=== PATIENT | female | born 1930 | race Caucasian/White ===

== ENCOUNTER → 2016-12-26 | Outpatient (CLI) | payer OTHER ==
[~2016-12-26] MED LIST: SIMV40TA96; SYNTHROID PO
[2016-12-26 14:54] LABS: Urine Bilirubin Negative (Negative); Urine Blood Negative /uL (Negative); Urine Color Yellow (Yellow); Urine Glucose Normal (Normal); Urine Ketone Negative (Negative); Urine Mucus FEW (None Seen); Urine Nitrite Negative (Negative); Urine RBC 1 /hpf (0 - 4); Urine Squamous Epithelial Cell FEW /hpf (<5); Urine Urobilinogen Normal (Negative); Urine pH 5.5 (5.0-8.0)
[2016-12-26 15:03] LABS: Basophils # (auto) 0.1 uL; DEFINITIVE VIEW TRANSMISSION; Eosinophils # (auto) 0.2 uL; Eosinophils % (auto) 1.8 % (0.0-7.0); Hematocrit 38.3 % (36.0-46.0); Hemoglobin 12.6 g/dL (12.2-16.2); Lymphocytes # (auto) 2.2 uL; Lymphocytes % (auto) 19.3 % (10.0-50.0); Mean Corpuscular Hgb Conc. 32.9 g/dL (32.0-36.0); Mean Corpuscular Volume 100.1 fL (80.0-100.0); Mean Platelet Volume 7.3 fL (7.4-10.4); Monocytes # (auto) 0.7 uL; Monocytes % (auto) 6.1 % (0.0-12.0); Neutrophils # (auto) 8.1 uL; Neutrophils % (auto) 71.8 % (37.0-80.0); Red Cell Distribution Width 15.7 % (11.6-16.0); White Blood Cell 11.3 10^3/uL (4.4-10.8)
[2016-12-26 15:09] LABS: Platelet Count (auto) 792 10^3/uL (140-450)
[2016-12-26 15:23] LABS: Albumin 3.7 g/dL (3.4-5.0); BUN/Creatinine Ratio 13.8; Bilirubin, Total 0.7 mg/dL (0.2-1.0); Calcium 8.9 mg/dL (8.5-10.1); Potassium 4.1 mmol/L (3.5-5.1); Total Protein 7.2 g/dL (6.4-8.2)
== END | disposition home or self-care (01) ==
LOC: LAB 13:23
PROVIDERS: ATTEND Internal Medicine
DX: Z00.00 Encounter for general adult medical examination without abnormal findings (principal); I10 Essential (primary) hypertension; E78.5 Hyperlipidemia, unspecified; E55.9 Vitamin D deficiency, unspecified
CPT/HCPCS: 36415; 80053; 80061; 81001; 82306; 83615; 84439; 84443; 84481; 85025

== ENCOUNTER → 2017-03-09 | Outpatient (CLI) | payer OTHER ==
[2017-03-09 11:31] LABS: Basophils # (auto) 0.1 uL; CONDITION Y; DEFINITIVE SEE PRINTOUT; Eosinophils # (auto) 0.3 uL; Eosinophils % (auto) 2.9 % (0.0-7.0); Hematocrit 36.6 % (36.0-46.0); Hemoglobin 12.2 g/dL (12.2-16.2); Lymphocytes # (auto) 2.6 uL; Lymphocytes % (auto) 28.7 % (10.0-50.0); Mean Corpuscular Hemoglobin 33.3 pg (28.0-32.0); Mean Corpuscular Hgb Conc. 33.4 g/dL (32.0-36.0); Mean Platelet Volume 7.1 fL (7.4-10.4); Monocytes # (auto) 0.5 uL; Neutrophils # (auto) 5.5 uL; Neutrophils % (auto) 61.4 % (37.0-80.0); Red Cell Distribution Width 15.3 % (11.6-16.0)
[2017-03-09 11:49] LABS: Platelet Count (auto) 785 10^3/uL (140-450)
[2017-03-09 11:55] LABS: Albumin 3.5 g/dL (3.4-5.0); BUN/Creatinine Ratio 15.2; Bilirubin, Total 0.6 mg/dL (0.2-1.0); Calcium 8.6 mg/dL (8.5-10.1); Total Protein 6.9 g/dL (6.4-8.2)
== END | disposition home or self-care (01) ==
LOC: LAB 11:18
PROVIDERS: ATTEND Internal Medicine
DX: D47.3 Essential (hemorrhagic) thrombocythemia (principal)
CPT/HCPCS: 36415; 80053; 83615; 85025

== ENCOUNTER 2017-04-05 19:09 | Emergency (ER) | payer OTHER ==
[~2017-04-05] VITALS: Ht 160 cm; Wt 72.6 kg
[2017-04-05 20:52] LABS: Basophils # (auto) 0.1 uL; Basophils % (auto) 0.7 % (0.0-2.0); CONDITION Y; Eosinophils # (auto) 0.2 uL; Eosinophils % (auto) 1.8 % (0.0-7.0); Hematocrit 38.3 % (36.0-46.0); Hemoglobin 12.8 g/dL (12.2-16.2); Lymphocytes # (auto) 2.2 uL; Mean Corpuscular Hemoglobin 32.9 pg (28.0-32.0); Mean Corpuscular Hgb Conc. 33.3 g/dL (32.0-36.0); Mean Corpuscular Volume 98.8 fL (80.0-100.0); Mean Platelet Volume 7.3 fL (7.4-10.4); Monocytes # (auto) 0.6 uL; Monocytes % (auto) 5.2 % (0.0-12.0); Neutrophils # (auto) 7.9 uL; Neutrophils % (auto) 72.3 % (37.0-80.0); Red Cell Distribution Width 15.3 % (11.6-16.0)
[2017-04-05 20:54] LABS: Platelet Count (auto) 764 10^3/uL (140-450)
[2017-04-05 21:11] LABS: Albumin 3.7 g/dL (3.4-5.0); Anion Gap 8 (5-15); Aspartate Aminotransferase 10 U/L (15-37); BUN/Creatinine Ratio 19.6; Blood Urea Nitrogen 20 mg/dL (7-18); Calcium 8.5 mg/dL (8.5-10.1); Carbon Dioxide 28 mmol/L (21-32); Chloride 108 mmol/L (98-107); GFR African American 66 mL/min; GFR Non-African American 55 mL/min; Glucose 104 mg/dL (74-106); Magnesium 2.4 mg/dL (1.6-2.6); Potassium 4.1 mmol/L (3.5-5.1); Sodium 144 mmol/L (136-145)
[2017-04-05 21:16] LABS: Alkaline Phosphatase 97 U/L (45-117); Bilirubin, Total 0.3 mg/dL (0.2-1.0); Total Protein 7.2 g/dL (6.4-8.2)
[2017-04-05 21:38] LABS: INR 0.98 (0.9-1.15); Partial Thromboplastin Time 26.5 sec (22.64-33.71); Prothrombin Time 10.7 sec (9.37-12.3)
[2017-04-06 01:00] VITALS: BP 179/75
== END 2017-04-06 01:25 | disposition home or self-care (01) ==
LOC: ER 19:14
DX: M25.861 Other specified joint disorders, right knee (principal); I10 Essential (primary) hypertension; E07.9 Disorder of thyroid, unspecified; Z90.710 Acquired absence of both cervix and uterus; Z79.899 Other long term (current) drug therapy
CPT/HCPCS: 36415; 73560; 73700; 80053; 83735; 84443; 84484; 85025; 85379; 85610; 85730; 93005; 93971

== ENCOUNTER → 2017-07-03 | Outpatient (CLI) | payer OTHER ==
[2017-07-03 12:26] LABS: Eosinophils # (auto) 0.2 uL; Hematocrit 39.3 % (36.0-46.0); Hemoglobin 12.9 g/dL (12.2-16.2); Lymphocytes # (auto) 2.2 uL; Monocytes # (auto) 0.6 uL; Nucleated Red Blood Cells % 0.1 %
[2017-07-03 12:27] LABS: Basophils # (auto) 0.4 uL; Basophils % (auto) 4.1 % (0.0-2.0); Eosinophils % (auto) 2.5 % (0.0-7.0); Lymphocytes % (auto) 22.7 % (10.0-50.0); Mean Corpuscular Hemoglobin 32.8 pg (28.0-32.0); Mean Corpuscular Hgb Conc. 32.9 g/dL (32.0-36.0); Mean Corpuscular Volume 99.9 fL (80.0-100.0); Mean Platelet Volume 7.3 fL (6.9-10.8); Neutrophils # (auto) 6.3 uL; Neutrophils % (auto) 64.7 % (37.0-80.0); Platelet Count (auto) 719 10^3/uL (140-450); Red Cell Distribution Width 15.2 % (11.8-14.3); White Blood Cell 9.7 10^3/uL (4.4-10.8)
[2017-07-03 12:44] LABS: Albumin 3.9 g/dL (3.4-5.0); BUN/Creatinine Ratio 16.2; Bilirubin, Total 0.8 mg/dL (0.2-1.0); Calcium 8.7 mg/dL (8.5-10.1); Potassium 4.5 mmol/L (3.5-5.1); Total Protein 7.5 g/dL (6.4-8.2)
[2017-07-03 13:23] LABS: Large Platelets FEW; Macrocytosis Slight; Platelet Estimate Increased
[2017-07-03 13:24] LABS: Ovalocytes FEW; Stomatocytes Few
== END | disposition home or self-care (01) ==
LOC: LAB 12:06
PROVIDERS: ATTEND Internal Medicine
DX: C50.019 Malignant neoplasm of nipple and areola, unspecified female breast (principal); N64.52 Nipple discharge; D47.3 Essential (hemorrhagic) thrombocythemia; I10 Essential (primary) hypertension
CPT/HCPCS: 36415; 80053; 83615; 85025

== ENCOUNTER → 2017-09-06 | Outpatient (CLI) | payer OTHER ==
[~2017-09-06] MED LIST changes: +ALBUAER3 IN; +FUR20T PO; +IPR002IS NEB; +LEVA1NEB5 IN; +LEVO75TA6 PO; +POTA10TA51 PO; +PRAV20TA3 PO; +VALS40TA2 PO
[2017-09-06 12:22] LABS: Basophils # (auto) 0.1 uL; Basophils % (auto) 1.1 % (0.0-2.0); Eosinophils # (auto) 0.2 uL; Lymphocytes # (auto) 2.2 uL; Nucleated Red Blood Cells % 0.1 %
[2017-09-06 12:24] LABS: Eosinophils % (auto) 1.8 % (0.0-7.0); Hematocrit 38.9 % (36.0-46.0); Hemoglobin 12.9 g/dL (12.2-16.2); Lymphocytes % (auto) 18.8 % (10.0-50.0); Mean Corpuscular Hgb Conc. 33.2 g/dL (32.0-36.0); Mean Corpuscular Volume 99.3 fL (80.0-100.0); Monocytes # (auto) 0.7 uL; Monocytes % (auto) 6.1 % (0.0-12.0); Neutrophils # (auto) 8.3 uL; Neutrophils % (auto) 72.2 % (37.0-80.0); Platelet Count (auto) 706 10^3/uL (140-450); Red Blood Cells 3.92 10^6/uL (4.0-5.20); Red Cell Distribution Width 15.6 % (11.8-14.3); White Blood Cell 11.5 10^3/uL (4.4-10.8)
[2017-09-06 13:09] LABS: BUN/Creatinine Ratio 17.5; Bilirubin, Total 0.7 mg/dL (0.2-1.0); Calcium 9.1 mg/dL (8.5-10.1); Potassium 4.4 mmol/L (3.5-5.1); Total Protein 7.7 g/dL (6.4-8.2)
[2017-09-06 13:17] LABS: Free T4 (Free Thyroxine) 1.4 ng/dL (0.89-1.76)
[2017-09-06 13:18] LABS: Free T3 2.28 pg/mL (2.3-4.2)
== END | disposition home or self-care (01) ==
LOC: LAB 11:23
PROVIDERS: ATTEND Physician Assistant
DX: N18.2 Chronic kidney disease, stage 2 (mild) (principal); D63.1 Anemia in chronic kidney disease; N25.81 Secondary hyperparathyroidism of renal origin; E03.9 Hypothyroidism, unspecified; D47.3 Essential (hemorrhagic) thrombocythemia; E78.4 Other hyperlipidemia
CPT/HCPCS: 36415; 80053; 80061; 83970; 84439; 84443; 84481; 85025

== ENCOUNTER 2017-09-19 23:13 | Inpatient (IN) | payer OTHER ==
[~2017-09-19] VITALS: Ht 162.6 cm; Wt 73.3 kg
[~2017-09-19 23:13] MED LIST changes: -ALBUAER3 IN; -FUR20T PO; -IPR002IS NEB; -LEVA1NEB5 IN; -LEVO75TA6 PO; -POTA10TA51 PO; -PRAV20TA3 PO; -VALS40TA2 PO
[2017-09-19] MEDS ORDERED: VALS40TA2 PO (23:51)
[2017-09-19] MEDS ORDERED: LEVO75TA6 PO (23:52)
[2017-09-19] MEDS ORDERED: PRAV20TA3 PO (23:52)
[2017-09-19] MEDS ORDERED: ALBUAER3 IN (23:54)
[2017-09-19 23:55] LABS: Eosinophils # (auto) 0 uL; Eosinophils % (auto) 0.2 % (0.0-7.0); Neutrophils # (auto) 11.7 uL
[2017-09-19 23:57] LABS: Basophils # (auto) 0.1 uL; Basophils % (auto) 0.4 % (0.0-2.0); Hematocrit 35.8 % (36.0-46.0); Hemoglobin 11.5 g/dL (12.2-16.2); Lymphocytes # (auto) 1.3 uL; Mean Corpuscular Hemoglobin 31.5 pg (28.0-32.0); Mean Corpuscular Hgb Conc. 32.1 g/dL (32.0-36.0); Mean Corpuscular Volume 98.3 fL (80.0-100.0); Monocytes % (auto) 7.1 % (0.0-12.0); Neutrophils % (auto) 83.3 % (37.0-80.0); Platelet Count (auto) 517 10^3/uL (140-450); Red Blood Cells 3.64 10^6/uL (4.0-5.20); Red Cell Distribution Width 14.9 % (11.8-14.3)
[2017-09-20] VITALS (7 sets, daily range): BP systolic 132–158; BP diastolic 53–86
[2017-09-20 00:12] LABS: Albumin 3.1 g/dL (3.4-5.0); Anion Gap 11 (5-15); BUN/Creatinine Ratio 24.5; Blood Urea Nitrogen 25 mg/dL (7-18); Calcium 8.6 mg/dL (8.5-10.1); Carbon Dioxide 24 mmol/L (21-32); Chloride 104 mmol/L (98-107); GFR African American 66 mL/min; GFR Non-African American 55 mL/min; Glucose 125 mg/dL (74-106); Magnesium 2.3 mg/dL (1.6-2.6); Potassium 3.4 mmol/L (3.5-5.1); Sodium 139 mmol/L (136-145)
[2017-09-20 00:17] LABS: Alanine Aminotransferase 22 U/L (13-56); Alkaline Phosphatase 69 U/L (45-117); Aspartate Aminotransferase 19 U/L (15-37); Bilirubin, Total 0.5 mg/dL (0.2-1.0); Total Protein 7.1 g/dL (6.4-8.2)
[2017-09-20 00:26] LABS: INR 0.98 (0.9-1.15); Prothrombin Time 10.7 sec (9.37-12.3)
[2017-09-20] MEDS ORDERED: FUROSEMIDE 20 MG/2 ML VIAL IV ONE (03:45)
[2017-09-20] MEDS ORDERED: DOCUSATE SOD 100 MG CAP PO PRN (04:00)
[2017-09-20] MEDS ORDERED: NITROGLYCERIN 0.4 MG SL TAB SL PRN (04:00)
[2017-09-20] MEDS ORDERED: POTASSIUM CHL 20 Meq TABLET PO ONE (04:00)
[2017-09-20] MEDS ORDERED: methylPREDNISolone SOD SUCC 125 MG/2 ML VL IV ONE (04:00)
[2017-09-20] MEDS ORDERED: IPRATROPIUM BROM 0.5 MG/2.5ML INH SOL NEB ONE (04:00)
[2017-09-20] MEDS ORDERED: MORPHINE SULFATE 4 MG/ML SYR/VIAL IV PRN (04:00)
[2017-09-20] MEDS ORDERED: AZITHROMYCIN 500MG/ 250ML 250 ML IV ONE (04:00)
[2017-09-20] MEDS ORDERED: ALBUTEROL SULF 2.5 MG/0.5ML(0.5%) NEB SOLN NEB ONE (04:00)
[2017-09-20] MEDS ORDERED: cefTRIAXone 1GM/10ml IVPUSH 10 ML IV ONE (04:00)
[2017-09-20] MEDS ORDERED: IOHEXOL 350 MG/ML 100ML IJ ONE (04:27)
[2017-09-20] MEDS: LEVOTHYROXINE SODIUM 25 MCG TAB PO SCH (06:58)
[2017-09-20] MEDS: IPRATROPIUM BROM 0.5 MG/2.5ML INH SOL NEB PRN ×2 (09:50→12:35)
[2017-09-20] MEDS: ALBUTEROL SULF 2.5 MG/0.5ML(0.5%) NEB SOLN NEB PRN ×2 (09:51→12:35)
[2017-09-20] MEDS ORDERED: FAMOTIDINE 20 MG TAB PO SCH (10:00)
[2017-09-20] MEDS: ENOXAPARIN SOD 40 MG/0.4 ML SYRINGE SC SCH (10:26)
[2017-09-20] MEDS: VALSARTAN 80 MG TAB PO SCH (10:26)
[2017-09-20] MEDS ORDERED: FAMOTIDINE 20 MG TAB PO ONE (10:45)
[2017-09-20] MEDS ORDERED: IPRATROPIUM BROM 0.5 MG/2.5ML INH SOL NEB SCH (13:15)
[2017-09-20] MEDS ORDERED: ALBUTEROL SULF 2.5 MG/0.5ML(0.5%) NEB SOLN NEB SCH (13:30)
[2017-09-20] MEDS: methylPREDNISolone SOD SUCC 40 MG/ML VL IV SCH ×2 (16:10→18:31)
[2017-09-20] MEDS: IPRATROPIUM BROM 0.5 MG/2.5ML INH SOL NEB SCH (18:51)
[2017-09-20] MEDS: ALBUTEROL SULF 2.5 MG/0.5ML(0.5%) NEB SOLN NEB SCH (18:51)
[2017-09-20] MEDS: BUDESONIDE (INHALATION) 0.5 MG/2 ML NEB NEB SCH (18:51)
[2017-09-20] MEDS: PRAVASTATIN SODIUM 20 MG TAB PO SCH (21:23)
[2017-09-20] MEDS: TEMAZEPAM 15 MG CAP PO PRN (21:23)
[2017-09-20] MEDS: ACETAMINOPHEN 325 MG TAB PO PRN (21:24)
[2017-09-21] VITALS (7 sets, daily range): BP systolic 121–149; BP diastolic 44–81
[2017-09-21] MEDS: IPRATROPIUM BROM 0.5 MG/2.5ML INH SOL NEB PRN (00:02)
[2017-09-21] MEDS: LEVOTHYROXINE SODIUM 25 MCG TAB PO SCH (06:04)
[2017-09-21] MEDS: methylPREDNISolone SOD SUCC 40 MG/ML VL IV SCH ×4 (06:04→17:47)
[2017-09-21 06:28] LABS: Basophils # (auto) 0 uL; Eosinophils # (auto) 0 uL; Hemoglobin 10.9 g/dL (12.2-16.2); Lymphocytes # (auto) 0.5 uL; Monocytes # (auto) 0.3 uL; Red Cell Distribution Width 14.9 % (11.8-14.3); White Blood Cell 11.6 10^3/uL (4.4-10.8)
[2017-09-21 06:30] LABS: Hematocrit 32.8 % (36.0-46.0); Lymphocytes % (auto) 4.7 % (10.0-50.0); Mean Corpuscular Hemoglobin 32.4 pg (28.0-32.0); Mean Corpuscular Hgb Conc. 33.4 g/dL (32.0-36.0); Mean Corpuscular Volume 97.3 fL (80.0-100.0); Monocytes % (auto) 2.3 % (0.0-12.0); Neutrophils # (auto) 10.8 uL; Platelet Count (auto) 553 10^3/uL (140-450); Red Blood Cells 3.37 10^6/uL (4.0-5.20)
[2017-09-21 06:57] LABS: Potassium 3.8 mmol/L (3.5-5.1)
[2017-09-21] MEDS: ALBUTEROL SULF 2.5 MG/0.5ML(0.5%) NEB SOLN NEB SCH ×5 (07:08→22:25)
[2017-09-21] MEDS: IPRATROPIUM BROM 0.5 MG/2.5ML INH SOL NEB SCH ×5 (07:08→22:25)
[2017-09-21 07:10] LABS: Albumin 2.9 g/dL (3.4-5.0); BUN/Creatinine Ratio 25.8; Calcium 8.7 mg/dL (8.5-10.1)
[2017-09-21 07:13] LABS: Bilirubin, Total 0.4 mg/dL (0.2-1.0); Total Protein 6.6 g/dL (6.4-8.2)
[2017-09-21] MEDS: VALSARTAN 80 MG TAB PO SCH (08:46)
[2017-09-21] MEDS: FAMOTIDINE 20 MG TAB PO SCH (08:46)
[2017-09-21] MEDS: ENOXAPARIN SOD 40 MG/0.4 ML SYRINGE SC SCH (08:47)
[2017-09-21] MEDS: AZITHROMYCIN 500MG/ 250ML 250 ML IV SCH (08:48)
[2017-09-21] MEDS: ACETAMINOPHEN 325 MG TAB PO PRN (08:55)
[2017-09-21] MEDS: BUDESONIDE (INHALATION) 0.5 MG/2 ML NEB NEB SCH ×2 (10:27→18:57)
[2017-09-21] MEDS: OSELTAMIVIR 75 MG CAP PO SCH ×2 (12:12→20:43)
[2017-09-21] MEDS: PRAVASTATIN SODIUM 20 MG TAB PO SCH (21:39)
[2017-09-21] MEDS: TEMAZEPAM 15 MG CAP PO PRN (21:39)
[2017-09-22] MEDS: methylPREDNISolone SOD SUCC 40 MG/ML VL IV SCH ×4 (00:17→21:27)
[2017-09-22] MEDS: ACETAMINOPHEN 325 MG TAB PO PRN (00:17)
[2017-09-22 05:02] VITALS: BP 140/52
[2017-09-22] MEDS: ALBUTEROL SULF 2.5 MG/0.5ML(0.5%) NEB SOLN NEB SCH ×4 (06:17→18:50)
[2017-09-22] MEDS: IPRATROPIUM BROM 0.5 MG/2.5ML INH SOL NEB SCH ×4 (06:17→18:50)
[2017-09-22] MEDS: LEVOTHYROXINE SODIUM 25 MCG TAB PO SCH (06:39)
[2017-09-22 08:00] VITALS: BP 146/60
[2017-09-22] MEDS: ENOXAPARIN SOD 40 MG/0.4 ML SYRINGE SC SCH (08:59)
[2017-09-22] MEDS: AZITHROMYCIN 500MG/ 250ML 250 ML IV SCH (09:00)
[2017-09-22] MEDS: FAMOTIDINE 20 MG TAB PO SCH (09:00)
[2017-09-22] MEDS: VALSARTAN 80 MG TAB PO SCH (09:00)
[2017-09-22] MEDS: OSELTAMIVIR 75 MG CAP PO SCH (09:00)
[2017-09-22] MEDS: BUDESONIDE (INHALATION) 0.5 MG/2 ML NEB NEB SCH ×2 (10:14→18:50)
[2017-09-22 12:00] VITALS: BP 126/56
[2017-09-22 16:00] VITALS: BP 146/58
[2017-09-22 20:00] VITALS: BP 132/64
[2017-09-22] MEDS: PRAVASTATIN SODIUM 20 MG TAB PO SCH (21:30)
[2017-09-22] MEDS: TEMAZEPAM 15 MG CAP PO PRN (21:30)
[2017-09-22 21:53] VITALS: BP 132/64
[2017-09-23] MEDS: ACETAMINOPHEN 325 MG TAB PO PRN (00:25)
[2017-09-23 04:34] VITALS: BP 124/62
[2017-09-23] MEDS: IPRATROPIUM BROM 0.5 MG/2.5ML INH SOL NEB SCH ×4 (05:40→18:48)
[2017-09-23] MEDS: ALBUTEROL SULF 2.5 MG/0.5ML(0.5%) NEB SOLN NEB SCH ×4 (05:40→18:48)
[2017-09-23] MEDS: methylPREDNISolone SOD SUCC 40 MG/ML VL IV SCH ×3 (06:06→22:05)
[2017-09-23 06:21] LABS: Basophils # (auto) 0 uL; Eosinophils # (auto) 0 uL; Hemoglobin 10.2 g/dL (12.2-16.2); Lymphocytes # (auto) 0.6 uL; Monocytes # (auto) 0.3 uL
[2017-09-23 06:23] LABS: Hematocrit 30.6 % (36.0-46.0); Lymphocytes % (auto) 4.3 % (10.0-50.0); Mean Corpuscular Hemoglobin 32.1 pg (28.0-32.0); Mean Corpuscular Hgb Conc. 33.2 g/dL (32.0-36.0); Mean Corpuscular Volume 96.9 fL (80.0-100.0); Monocytes % (auto) 2.5 % (0.0-12.0); Neutrophils # (auto) 12.2 uL; Neutrophils % (auto) 93.2 % (37.0-80.0); Platelet Count (auto) 603 10^3/uL (140-450); Red Blood Cells 3.16 10^6/uL (4.0-5.20); Red Cell Distribution Width 15.1 % (11.8-14.3); White Blood Cell 13.1 10^3/uL (4.4-10.8)
[2017-09-23 06:32] LABS: BUN/Creatinine Ratio 29.3; Calcium 8.2 mg/dL (8.5-10.1)
[2017-09-23] MEDS: LEVOTHYROXINE SODIUM 25 MCG TAB PO SCH (06:48)
[2017-09-23 07:29] VITALS: BP 140/58
[2017-09-23] MEDS: ENOXAPARIN SOD 40 MG/0.4 ML SYRINGE SC SCH (09:33)
[2017-09-23] MEDS: AZITHROMYCIN 500MG/ 250ML 250 ML IV SCH (09:33)
[2017-09-23] MEDS: FAMOTIDINE 20 MG TAB PO SCH (09:34)
[2017-09-23] MEDS: VALSARTAN 80 MG TAB PO SCH (09:34)
[2017-09-23] MEDS: BUDESONIDE (INHALATION) 0.5 MG/2 ML NEB NEB SCH ×2 (09:58→18:49)
[2017-09-23 11:48] VITALS: BP 145/61
[2017-09-23] MEDS: SOD CHL 0.45% 1,000 ML IV SCH (12:00)
[2017-09-23] MEDS: guaiFENesin 200 MG/10 ML UD PO SCH ×2 (12:00→17:35)
[2017-09-23 17:03] VITALS: BP 132/55
[2017-09-23 20:00] VITALS: BP 151/60
[2017-09-23 21:53] VITALS: BP 151/60
[2017-09-23] MEDS: PRAVASTATIN SODIUM 20 MG TAB PO SCH (22:05)
[2017-09-23] MEDS: TEMAZEPAM 15 MG CAP PO PRN (22:39)
[2017-09-24] MEDS: guaiFENesin 200 MG/10 ML UD PO SCH ×4 (00:04→17:35)
[2017-09-24 04:32] VITALS: BP 136/86
[2017-09-24 05:47] LABS: Hemoglobin 10.6 g/dL (12.2-16.2); Mean Corpuscular Hemoglobin 32.6 pg (28.0-32.0); White Blood Cell 12.8 10^3/uL (4.4-10.8)
[2017-09-24 05:50] LABS: Hematocrit 31.4 % (36.0-46.0); Mean Corpuscular Hgb Conc. 33.8 g/dL (32.0-36.0); Mean Corpuscular Volume 96.6 fL (80.0-100.0); Platelet Count (auto) 648 10^3/uL (140-450); Red Blood Cells 3.25 10^6/uL (4.0-5.20); Red Cell Distribution Width 15.1 % (11.8-14.3)
[2017-09-24] MEDS: methylPREDNISolone SOD SUCC 40 MG/ML VL IV SCH ×3 (05:54→21:54)
[2017-09-24 05:58] LABS: Basophils % (manual) 0 (0.0-2.0); Blast Cells 0; Eosinophils % (manual) 0 (0-7); Promyelocytes % 0; Reactive Lymphocytes 0
[2017-09-24 06:01] LABS: Calcium 8.5 mg/dL (8.5-10.1); Potassium 4.5 mmol/L (3.5-5.1)
[2017-09-24] MEDS: IPRATROPIUM BROM 0.5 MG/2.5ML INH SOL NEB SCH ×4 (06:11→19:14)
[2017-09-24] MEDS: ALBUTEROL SULF 2.5 MG/0.5ML(0.5%) NEB SOLN NEB SCH ×4 (06:11→19:13)
[2017-09-24] MEDS: LEVOTHYROXINE SODIUM 25 MCG TAB PO SCH (06:46)
[2017-09-24 07:00] LABS: Band Neutrophils % (manual) 4; Lymphocytes % (manual) 7 (10.0-50.0); Metamyelocytes % 1; Monocytes % (manual) 6 (0-12); Myelocytes % 1
[2017-09-24 09:00] VITALS: BP 138/63
[2017-09-24] MEDS: AZITHROMYCIN 500MG/ 250ML 250 ML IV SCH (09:52)
[2017-09-24] MEDS: FAMOTIDINE 20 MG TAB PO SCH (09:53)
[2017-09-24] MEDS: VALSARTAN 80 MG TAB PO SCH (09:53)
[2017-09-24] MEDS: ENOXAPARIN SOD 40 MG/0.4 ML SYRINGE SC SCH (09:54)
[2017-09-24] MEDS: ACETAMINOPHEN 325 MG TAB PO PRN (10:00)
[2017-09-24] MEDS ORDERED: DEXTROSE (50%) 50ML SYRG IV PRN (10:30)
[2017-09-24] MEDS: BUDESONIDE (INHALATION) 0.5 MG/2 ML NEB NEB SCH ×2 (10:37→19:14)
[2017-09-24] MEDS: ACCU-CHEK COMFORT CURVE STRIP VI SCH ×3 (11:38→21:54)
[2017-09-24] MEDS: InsuLIN REG 1unit/0.01ml Soln (100units/ml) SC SCH ×3 (11:39→21:55)
[2017-09-24 13:00] VITALS: BP 141/62
[2017-09-24] MEDS: SOD CHL 0.45% 1,000 ML IV SCH (13:15)
[2017-09-24 17:00] VITALS: BP 141/67
[2017-09-24] MEDS: MORPHINE SULFATE 4 MG/ML SYR/VIAL IV PRN ×2 (17:35→23:01)
[2017-09-24 20:00] VITALS: BP 136/56
[2017-09-24 21:33] VITALS: BP 136/56
[2017-09-24] MEDS: PRAVASTATIN SODIUM 20 MG TAB PO SCH (21:54)
[2017-09-25] MEDS: MORPHINE SULFATE 4 MG/ML SYR/VIAL IV PRN ×2 (04:25→08:52)
[2017-09-25 04:48] VITALS: BP 139/60
[2017-09-25] MEDS: guaiFENesin 200 MG/10 ML UD PO SCH ×4 (06:00→18:00)
[2017-09-25] MEDS: IPRATROPIUM BROM 0.5 MG/2.5ML INH SOL NEB SCH ×4 (06:06→19:34)
[2017-09-25] MEDS: ALBUTEROL SULF 2.5 MG/0.5ML(0.5%) NEB SOLN NEB SCH ×4 (06:06→19:34)
[2017-09-25] MEDS: ACCU-CHEK COMFORT CURVE STRIP VI SCH ×4 (06:09→22:00)
[2017-09-25] MEDS: methylPREDNISolone SOD SUCC 40 MG/ML VL IV SCH ×3 (06:17→22:27)
[2017-09-25] MEDS: LEVOTHYROXINE SODIUM 25 MCG TAB PO SCH (06:17)
[2017-09-25] MEDS: InsuLIN REG 1unit/0.01ml Soln (100units/ml) SC SCH ×4 (06:18→22:41)
[2017-09-25 06:44] LABS: BUN/Creatinine Ratio 32.4; Calcium 8.2 mg/dL (8.5-10.1); Potassium 4.7 mmol/L (3.5-5.1)
[2017-09-25 07:36] LABS: Hemoglobin 10.7 g/dL (12.2-16.2); Mean Corpuscular Hemoglobin 32.3 pg (28.0-32.0); Mean Corpuscular Hgb Conc. 33.5 g/dL (32.0-36.0); Mean Corpuscular Volume 96.4 fL (80.0-100.0); Platelet Count (auto) 633 10^3/uL (140-450); Red Blood Cells 3.32 10^6/uL (4.0-5.20); Red Cell Distribution Width 14.9 % (11.8-14.3); White Blood Cell 14.1 10^3/uL (4.4-10.8)
[2017-09-25 07:38] LABS: Band Neutrophils % (manual) 0; Basophils % (manual) 0 (0.0-2.0); Blast Cells 0; Eosinophils % (manual) 0 (0-7); Metamyelocytes % 0; Myelocytes % 0; Promyelocytes % 0; Reactive Lymphocytes 0
[2017-09-25 08:23] VITALS: BP 148/63
[2017-09-25] MEDS: FAMOTIDINE 20 MG TAB PO SCH (08:50)
[2017-09-25] MEDS: VALSARTAN 80 MG TAB PO SCH (08:51)
[2017-09-25] MEDS: ENOXAPARIN SOD 40 MG/0.4 ML SYRINGE SC SCH (08:52)
[2017-09-25] MEDS: AZITHROMYCIN 500MG/ 250ML 250 ML IV SCH (08:52)
[2017-09-25] MEDS: BUDESONIDE (INHALATION) 0.5 MG/2 ML NEB NEB SCH ×2 (09:55→19:34)
[2017-09-25 12:20] VITALS: BP 133/54
[2017-09-25 14:17] LABS: Lymphocytes % (manual) 6 (10.0-50.0); Monocytes % (manual) 7 (0-12)
[2017-09-25 16:48] VITALS: BP 122/46
[2017-09-25 21:58] VITALS: BP 140/60
[2017-09-25] MEDS: TEMAZEPAM 15 MG CAP PO PRN (22:26)
[2017-09-25] MEDS: PRAVASTATIN SODIUM 20 MG TAB PO SCH (22:26)
[2017-09-25] MEDS: ACETAMINOPHEN 325 MG TAB PO PRN (22:40)
[2017-09-26 05:29] VITALS: BP 138/71
[2017-09-26] MEDS: IPRATROPIUM BROM 0.5 MG/2.5ML INH SOL NEB SCH ×4 (05:42→19:16)
[2017-09-26] MEDS: BUDESONIDE (INHALATION) 0.5 MG/2 ML NEB NEB SCH ×2 (05:42→19:16)
[2017-09-26] MEDS: ALBUTEROL SULF 2.5 MG/0.5ML(0.5%) NEB SOLN NEB SCH ×5 (05:42→19:15)
[2017-09-26] MEDS: guaiFENesin 200 MG/10 ML UD PO SCH ×6 (06:00→23:41)
[2017-09-26] MEDS: methylPREDNISolone SOD SUCC 40 MG/ML VL IV SCH ×3 (06:26→21:49)
[2017-09-26] MEDS: InsuLIN REG 1unit/0.01ml Soln (100units/ml) SC SCH ×4 (06:27→21:51)
[2017-09-26] MEDS: LEVOTHYROXINE SODIUM 25 MCG TAB PO SCH (06:27)
[2017-09-26] MEDS: ACCU-CHEK COMFORT CURVE STRIP VI SCH ×4 (06:27→21:51)
[2017-09-26 06:30] LABS: Mean Corpuscular Hgb Conc. 32.9 g/dL (32.0-36.0)
[2017-09-26 06:37] LABS: Hematocrit 34.6 % (36.0-46.0); Hemoglobin 11.4 g/dL (12.2-16.2); Mean Corpuscular Hemoglobin 31.8 pg (28.0-32.0); Mean Corpuscular Volume 96.6 fL (80.0-100.0); Red Blood Cells 3.58 10^6/uL (4.0-5.20); Red Cell Distribution Width 14.8 % (11.8-14.3); White Blood Cell 17.6 10^3/uL (4.4-10.8)
[2017-09-26 06:42] LABS: BUN/Creatinine Ratio 31.1; Potassium 4.4 mmol/L (3.5-5.1)
[2017-09-26 06:43] LABS: Platelet Count (auto) 770 10^3/uL (140-450)
[2017-09-26 06:44] LABS: Band Neutrophils % (manual) 0; Basophils % (manual) 0 (0.0-2.0); Eosinophils % (manual) 0 (0-7); Metamyelocytes % 0; Myelocytes % 0
[2017-09-26 06:45] LABS: Blast Cells 0; Promyelocytes % 0; Reactive Lymphocytes 0
[2017-09-26 09:00] VITALS: BP 137/63
[2017-09-26] MEDS: FAMOTIDINE 20 MG TAB PO SCH (09:42)
[2017-09-26] MEDS: AZITHROMYCIN 250 MG TAB PO SCH (09:43)
[2017-09-26] MEDS: VALSARTAN 80 MG TAB PO SCH (09:44)
[2017-09-26] MEDS: ENOXAPARIN SOD 40 MG/0.4 ML SYRINGE SC SCH (09:48)
[2017-09-26] MEDS: BOOST PLUS 8 ounce PO SCH ×2 (12:05→17:47)
[2017-09-26 12:14] VITALS: BP 130/62
[2017-09-26 14:50] LABS: Lymphocytes % (manual) 7 (10.0-50.0); Monocytes % (manual) 3 (0-12)
[2017-09-26 15:23] VITALS: BP 130/62
[2017-09-26 16:03] VITALS: BP 146/74
[2017-09-26] MEDS: MORPHINE SULFATE 4 MG/ML SYR/VIAL IV PRN (21:20)
[2017-09-26] MEDS: CLINDAMYCIN 600MG IV 50 ML IV SCH (21:49)
[2017-09-26] MEDS: PRAVASTATIN SODIUM 20 MG TAB PO SCH (21:49)
[2017-09-26 22:00] VITALS: BP 140/65
[2017-09-26] MEDS: TEMAZEPAM 15 MG CAP PO PRN (23:41)
[2017-09-27] MEDS: MORPHINE SULFATE 4 MG/ML SYR/VIAL IV PRN (04:42)
[2017-09-27 05:45] VITALS: BP 126/52
[2017-09-27] MEDS: guaiFENesin 200 MG/10 ML UD PO SCH ×3 (06:00→18:16)
[2017-09-27 06:02] LABS: Hemoglobin 10.6 g/dL (12.2-16.2); Platelet Count (auto) 621 10^3/uL (140-450)
[2017-09-27 06:05] LABS: Hematocrit 31.5 % (36.0-46.0); Mean Corpuscular Hemoglobin 32.2 pg (28.0-32.0); Mean Corpuscular Hgb Conc. 33.5 g/dL (32.0-36.0); Red Blood Cells 3.29 10^6/uL (4.0-5.20); Red Cell Distribution Width 14.8 % (11.8-14.3); White Blood Cell 15.3 10^3/uL (4.4-10.8)
[2017-09-27 06:17] LABS: Calcium 7.8 mg/dL (8.5-10.1); Potassium 4.6 mmol/L (3.5-5.1)
[2017-09-27 06:18] LABS: Band Neutrophils % (manual) 0; Basophils % (manual) 0 (0.0-2.0); Blast Cells 0; Eosinophils % (manual) 0 (0-7); Metamyelocytes % 0; Myelocytes % 0; Promyelocytes % 0; Reactive Lymphocytes 0
[2017-09-27 06:22] LABS: BUN/Creatinine Ratio 40.7
[2017-09-27] MEDS: methylPREDNISolone SOD SUCC 40 MG/ML VL IV SCH (06:22)
[2017-09-27] MEDS: CLINDAMYCIN 600MG IV 50 ML IV SCH ×3 (06:22→22:04)
[2017-09-27] MEDS: ACCU-CHEK COMFORT CURVE STRIP VI SCH ×4 (06:23→22:05)
[2017-09-27] MEDS: InsuLIN REG 1unit/0.01ml Soln (100units/ml) SC SCH ×4 (06:23→22:04)
[2017-09-27] MEDS: LEVOTHYROXINE SODIUM 25 MCG TAB PO SCH (06:23)
[2017-09-27] MEDS: ONDANSETRON HCL 4 MG/2 ML VIAL IV PRN ×2 (06:24→13:07)
[2017-09-27] MEDS: ALBUTEROL SULF 2.5 MG/0.5ML(0.5%) NEB SOLN NEB SCH ×4 (06:40→18:00)
[2017-09-27] MEDS: IPRATROPIUM BROM 0.5 MG/2.5ML INH SOL NEB SCH ×4 (06:40→19:31)
[2017-09-27] MEDS: BOOST PLUS 8 ounce PO SCH ×3 (08:00→18:16)
[2017-09-27 08:19] VITALS: BP 128/52
[2017-09-27 10:53] LABS: Lymphocytes % (manual) 14 (10.0-50.0); Monocytes % (manual) 1 (0-12)
[2017-09-27] MEDS: BUDESONIDE (INHALATION) 0.5 MG/2 ML NEB NEB SCH ×2 (11:13→19:32)
[2017-09-27] MEDS ORDERED: predniSONE 20 MG TAB PO ONE (11:45)
[2017-09-27 11:51] VITALS: BP 122/88
[2017-09-27] MEDS: VALSARTAN 80 MG TAB PO SCH (12:11)
[2017-09-27] MEDS: AZITHROMYCIN 250 MG TAB PO SCH (12:12)
[2017-09-27] MEDS: FAMOTIDINE 20 MG TAB PO SCH (12:13)
[2017-09-27] MEDS: ENOXAPARIN SOD 40 MG/0.4 ML SYRINGE SC SCH (12:13)
[2017-09-27] MEDS: LORazepam 0.5 MG TAB PO PRN (12:46)
[2017-09-27 16:51] VITALS: BP 117/51
[2017-09-27 21:33] VITALS: BP 121/53
[2017-09-27] MEDS: TEMAZEPAM 15 MG CAP PO PRN (22:03)
[2017-09-27] MEDS: PRAVASTATIN SODIUM 20 MG TAB PO SCH (22:04)
[2017-09-28] MEDS: LORazepam 0.5 MG TAB PO PRN ×3 (02:33→21:25)
[2017-09-28 05:00] VITALS: BP 107/39
[2017-09-28] MEDS: guaiFENesin 200 MG/10 ML UD PO SCH ×4 (06:00→17:43)
[2017-09-28] MEDS: IPRATROPIUM BROM 0.5 MG/2.5ML INH SOL NEB SCH ×4 (06:00→19:38)
[2017-09-28] MEDS: ALBUTEROL SULF 2.5 MG/0.5ML(0.5%) NEB SOLN NEB SCH ×4 (06:00→19:38)
[2017-09-28] MEDS: CLINDAMYCIN 600MG IV 50 ML IV SCH (06:27)
[2017-09-28] MEDS: InsuLIN REG 1unit/0.01ml Soln (100units/ml) SC SCH ×4 (06:28→21:42)
[2017-09-28] MEDS: LEVOTHYROXINE SODIUM 25 MCG TAB PO SCH (06:28)
[2017-09-28] MEDS: ACCU-CHEK COMFORT CURVE STRIP VI SCH ×4 (06:28→21:42)
[2017-09-28] MEDS: BOOST PLUS 8 ounce PO SCH ×3 (08:00→17:47)
[2017-09-28 08:19] VITALS: BP 131/58
[2017-09-28] MEDS: BUDESONIDE (INHALATION) 0.5 MG/2 ML NEB NEB SCH ×2 (10:26→19:39)
[2017-09-28] MEDS: predniSONE 20 MG TAB PO SCH (11:01)
[2017-09-28] MEDS: VALSARTAN 80 MG TAB PO SCH (11:02)
[2017-09-28] MEDS: AZITHROMYCIN 250 MG TAB PO SCH (11:02)
[2017-09-28] MEDS: ENOXAPARIN SOD 40 MG/0.4 ML SYRINGE SC SCH (11:03)
[2017-09-28] MEDS: PANTOPRAZOLE 40 MG/10 ML VIAL IV SCH (11:03)
[2017-09-28 11:53] VITALS: BP 129/58
[2017-09-28] MEDS ORDERED: FLUCONAZOLE 100 MG TAB PO ONE (12:00)
[2017-09-28 16:41] VITALS: BP 132/44
[2017-09-28] MEDS: PRAVASTATIN SODIUM 20 MG TAB PO SCH (21:24)
[2017-09-28 22:00] VITALS: BP 155/56
[2017-09-28] MEDS: TEMAZEPAM 15 MG CAP PO PRN (22:15)
[2017-09-29] VITALS (8 sets, daily range): BP systolic 113–136; BP diastolic 52–61
[2017-09-29] MEDS: IPRATROPIUM BROM 0.5 MG/2.5ML INH SOL NEB SCH ×4 (06:00→18:29)
[2017-09-29] MEDS: ALBUTEROL SULF 2.5 MG/0.5ML(0.5%) NEB SOLN NEB SCH ×4 (06:00→18:29)
[2017-09-29] MEDS: InsuLIN REG 1unit/0.01ml Soln (100units/ml) SC SCH ×2 (06:34→11:20)
[2017-09-29] MEDS: ACCU-CHEK COMFORT CURVE STRIP VI SCH ×2 (06:34→11:21)
[2017-09-29] MEDS: guaiFENesin 200 MG/10 ML UD PO SCH ×2 (06:57)
[2017-09-29] MEDS: LEVOTHYROXINE SODIUM 25 MCG TAB PO SCH (06:57)
[2017-09-29] MEDS: BUDESONIDE (INHALATION) 0.5 MG/2 ML NEB NEB SCH ×2 (09:51→18:29)
[2017-09-29] MEDS: PANTOPRAZOLE 40 MG/10 ML VIAL IV SCH (10:20)
[2017-09-29] MEDS: BOOST PLUS 8 ounce PO SCH ×3 (10:20→18:30)
[2017-09-29] MEDS: predniSONE 20 MG TAB PO SCH (10:21)
[2017-09-29] MEDS: VALSARTAN 80 MG TAB PO SCH (10:21)
[2017-09-29] MEDS: FLUCONAZOLE 100 MG TAB PO SCH (10:21)
[2017-09-29] MEDS: AZITHROMYCIN 250 MG TAB PO SCH (10:21)
[2017-09-29] MEDS: ENOXAPARIN SOD 40 MG/0.4 ML SYRINGE SC SCH (10:22)
[2017-09-29] MEDS: NYSTATIN (MOUTH-THROAT) 500,000 UNITS/5 ML SUSP MT SCH ×3 (12:14→22:29)
[2017-09-29] MEDS: PRAVASTATIN SODIUM 20 MG TAB PO SCH (22:29)
[2017-09-29] MEDS: TEMAZEPAM 15 MG CAP PO PRN (22:29)
[2017-09-30] VITALS (7 sets, daily range): BP systolic 123–139; BP diastolic 55–70
[2017-09-30] MEDS: BUDESONIDE (INHALATION) 0.5 MG/2 ML NEB NEB SCH ×2 (05:49→17:42)
[2017-09-30] MEDS: ALBUTEROL SULF 2.5 MG/0.5ML(0.5%) NEB SOLN NEB SCH ×3 (05:49→17:43)
[2017-09-30] MEDS: IPRATROPIUM BROM 0.5 MG/2.5ML INH SOL NEB SCH ×4 (05:49→17:42)
[2017-09-30] MEDS: LEVOTHYROXINE SODIUM 25 MCG TAB PO SCH (06:11)
[2017-09-30] MEDS: NYSTATIN (MOUTH-THROAT) 500,000 UNITS/5 ML SUSP MT SCH ×4 (06:11→22:09)
[2017-09-30 06:56] LABS: Hematocrit 32.6 % (36.0-46.0); Mean Corpuscular Hemoglobin 32.4 pg (28.0-32.0); Mean Corpuscular Hgb Conc. 33.7 g/dL (32.0-36.0); Mean Corpuscular Volume 96.1 fL (80.0-100.0); Platelet Count (auto) 579 10^3/uL (140-450); Red Cell Distribution Width 15.1 % (11.8-14.3); White Blood Cell 15.4 10^3/uL (4.4-10.8)
[2017-09-30 06:58] LABS: Basophils % (manual) 0 (0.0-2.0); Blast Cells 0; Promyelocytes % 0; Reactive Lymphocytes 0
[2017-09-30 07:27] LABS: Albumin 2.6 g/dL (3.4-5.0); Bilirubin, Total 0.5 mg/dL (0.2-1.0); Calcium 7.9 mg/dL (8.5-10.1); Potassium 5.1 mmol/L (3.5-5.1); Total Protein 5.6 g/dL (6.4-8.2)
[2017-09-30 08:30] LABS: Band Neutrophils % (manual) 3; Eosinophils % (manual) 1 (0-7); Lymphocytes % (manual) 16 (10.0-50.0); Metamyelocytes % 1; Monocytes % (manual) 8 (0-12); Myelocytes % 1
[2017-09-30] MEDS: PANTOPRAZOLE 40 MG/10 ML VIAL IV SCH (11:37)
[2017-09-30] MEDS: BOOST PLUS 8 ounce PO SCH ×3 (11:37→18:31)
[2017-09-30] MEDS: FLUCONAZOLE 100 MG TAB PO SCH (11:37)
[2017-09-30] MEDS: predniSONE 20 MG TAB PO SCH (11:37)
[2017-09-30] MEDS: VALSARTAN 80 MG TAB PO SCH (11:38)
[2017-09-30] MEDS: AZITHROMYCIN 250 MG TAB PO SCH (11:38)
[2017-09-30] MEDS: ENOXAPARIN SOD 40 MG/0.4 ML SYRINGE SC SCH (11:39)
[2017-09-30] MEDS: PRAVASTATIN SODIUM 20 MG TAB PO SCH (22:09)
[2017-09-30] MEDS: TEMAZEPAM 15 MG CAP PO PRN (22:16)
[2017-10-01 05:27] VITALS: BP 133/55
[2017-10-01] MEDS: ALBUTEROL SULF 2.5 MG/0.5ML(0.5%) NEB SOLN NEB SCH ×4 (06:00→18:00)
[2017-10-01] MEDS: IPRATROPIUM BROM 0.5 MG/2.5ML INH SOL NEB SCH ×4 (06:05→19:15)
[2017-10-01] MEDS: BUDESONIDE (INHALATION) 0.5 MG/2 ML NEB NEB SCH ×2 (06:06→19:16)
[2017-10-01] MEDS: NYSTATIN (MOUTH-THROAT) 500,000 UNITS/5 ML SUSP MT SCH ×4 (06:27→21:48)
[2017-10-01] MEDS: LEVOTHYROXINE SODIUM 25 MCG TAB PO SCH (06:30)
[2017-10-01 09:30] VITALS: BP 136/70
[2017-10-01 09:31] VITALS: BP 136/70
[2017-10-01] MEDS: ENOXAPARIN SOD 40 MG/0.4 ML SYRINGE SC SCH (09:52)
[2017-10-01] MEDS: predniSONE 20 MG TAB PO SCH (09:52)
[2017-10-01] MEDS: AZITHROMYCIN 250 MG TAB PO SCH (09:52)
[2017-10-01] MEDS: FLUCONAZOLE 100 MG TAB PO SCH (09:52)
[2017-10-01] MEDS: BOOST PLUS 8 ounce PO SCH ×3 (09:52→18:00)
[2017-10-01] MEDS: VALSARTAN 80 MG TAB PO SCH (09:53)
[2017-10-01] MEDS: PANTOPRAZOLE 40 MG/10 ML VIAL IV SCH (09:53)
[2017-10-01 12:28] VITALS: BP 136/70
[2017-10-01 16:22] VITALS: BP 130/58
[2017-10-01] MEDS: TEMAZEPAM 15 MG CAP PO PRN (21:48)
[2017-10-01] MEDS: PRAVASTATIN SODIUM 20 MG TAB PO SCH (21:48)
[2017-10-01 22:29] VITALS: BP 133/63
[2017-10-02] VITALS (7 sets, daily range): BP systolic 118–137; BP diastolic 52–60
[2017-10-02] MEDS: NYSTATIN (MOUTH-THROAT) 500,000 UNITS/5 ML SUSP MT SCH ×4 (06:32→21:54)
[2017-10-02] MEDS: LEVOTHYROXINE SODIUM 25 MCG TAB PO SCH (06:33)
[2017-10-02] MEDS: IPRATROPIUM BROM 0.5 MG/2.5ML INH SOL NEB SCH ×4 (07:17→18:57)
[2017-10-02] MEDS: BUDESONIDE (INHALATION) 0.5 MG/2 ML NEB NEB SCH ×2 (07:17→18:58)
[2017-10-02] MEDS: ALBUTEROL SULF 2.5 MG/0.5ML(0.5%) NEB SOLN NEB SCH ×4 (07:17→18:57)
[2017-10-02] MEDS: BOOST PLUS 8 ounce PO SCH ×3 (08:00→18:00)
[2017-10-02] MEDS: PANTOPRAZOLE 40 MG/10 ML VIAL IV SCH (10:00)
[2017-10-02] MEDS: AZITHROMYCIN 250 MG TAB PO SCH (11:02)
[2017-10-02] MEDS: VALSARTAN 80 MG TAB PO SCH (11:02)
[2017-10-02] MEDS: FLUCONAZOLE 100 MG TAB PO SCH (11:02)
[2017-10-02] MEDS: predniSONE 20 MG TAB PO SCH (11:02)
[2017-10-02] MEDS: ENOXAPARIN SOD 40 MG/0.4 ML SYRINGE SC SCH (11:03)
[2017-10-02] MEDS: PRAVASTATIN SODIUM 20 MG TAB PO SCH (21:54)
[2017-10-02] MEDS: TEMAZEPAM 15 MG CAP PO PRN (21:54)
[2017-10-03 05:29] VITALS: BP 134/64
[2017-10-03] MEDS: NYSTATIN (MOUTH-THROAT) 500,000 UNITS/5 ML SUSP MT SCH ×3 (06:13→18:38)
[2017-10-03] MEDS: LEVOTHYROXINE SODIUM 25 MCG TAB PO SCH (06:14)
[2017-10-03] MEDS: IPRATROPIUM BROM 0.5 MG/2.5ML INH SOL NEB SCH ×4 (07:03→19:09)
[2017-10-03] MEDS: ALBUTEROL SULF 2.5 MG/0.5ML(0.5%) NEB SOLN NEB SCH ×4 (07:03→19:09)
[2017-10-03] MEDS: BUDESONIDE (INHALATION) 0.5 MG/2 ML NEB NEB SCH ×2 (07:03→19:09)
[2017-10-03 08:27] VITALS: BP 121/55
[2017-10-03] MEDS: BOOST PLUS 8 ounce PO SCH ×3 (09:08→18:38)
[2017-10-03] MEDS: CHOLESTYRAMINE 4 GM POWDER PO SCH ×2 (09:15→13:05)
[2017-10-03] MEDS: AZITHROMYCIN 250 MG TAB PO SCH (10:27)
[2017-10-03] MEDS: FLUCONAZOLE 100 MG TAB PO SCH (10:27)
[2017-10-03] MEDS: ENOXAPARIN SOD 40 MG/0.4 ML SYRINGE SC SCH (10:30)
[2017-10-03] MEDS: predniSONE 20 MG TAB PO SCH (10:31)
[2017-10-03] MEDS: PANTOPRAZOLE 40 MG/10 ML VIAL IV SCH (10:31)
[2017-10-03] MEDS: VALSARTAN 80 MG TAB PO SCH (10:31)
[2017-10-03 12:14] VITALS: BP 126/53
[2017-10-03 16:31] VITALS: BP 126/57
[2017-10-03 21:49] VITALS: BP 128/56
[2017-10-03 21:50] VITALS: BP 128/56
[2017-10-25] MEDS ORDERED: LEVA1NEB5 IN (14:51)
[2017-11-01] MEDS ORDERED: FUR20T PO (08:39)
[2017-11-01] MEDS ORDERED: POTA10TA51 PO (08:39)
[2017-11-01] MEDS ORDERED: IPR002IS NEB (08:40)
== END 2017-10-03 22:30 | DRG 189 ==
LOC: EDBD 23:13 → ER 23:16 → TELE 23:17 → TELE-EAST 09-20 05:30 → EAST 09-30 21:07
PROVIDERS: ADMIT Nurse Practitioner; ATTEND Internal Medicine Pulmonary Disease
DX: J96.20 Acute and chronic respiratory failure, unspecified whether with hypoxia or hypercapnia (principal); N17.9 Acute kidney failure, unspecified; E44.0 Moderate protein-calorie malnutrition; B37.0 Candidal stomatitis; K52.1 Toxic gastroenteritis and colitis; R65.10 Systemic inflammatory response syndrome (SIRS) of non-infectious origin without acute organ dysfunction; B37.81 Candidal esophagitis; J44.1 Chronic obstructive pulmonary disease with (acute) exacerbation; I13.0 Hypertensive heart and chronic kidney disease with heart failure and stage 1 through stage 4 chronic kidney disease, or unspecified chronic kidney disease; E44.1 Mild protein-calorie malnutrition; E78.5 Hyperlipidemia, unspecified; I25.10 Atherosclerotic heart disease of native coronary artery without angina pectoris; R26.89 Other abnormalities of gait and mobility; R73.9 Hyperglycemia, unspecified; D47.3 Essential (hemorrhagic) thrombocythemia; M06.9 Rheumatoid arthritis, unspecified; T38.0X5A Adverse effect of glucocorticoids and synthetic analogues, initial encounter; N18.3 Chronic kidney disease, stage 3 (moderate); K59.00 Constipation, unspecified; T36.8X5A Adverse effect of other systemic antibiotics, initial encounter; D63.8 Anemia in other chronic diseases classified elsewhere; I50.9 Heart failure, unspecified; E03.9 Hypothyroidism, unspecified; Z68.27 Body mass index [BMI] 27.0-27.9, adult; Z80.0 Family history of malignant neoplasm of digestive organs; Z82.49 Family history of ischemic heart disease and other diseases of the circulatory system; Z87.891 Personal history of nicotine dependence; Z90.710 Acquired absence of both cervix and uterus; Y92.89 Other specified places as the place of occurrence of the external cause; Z88.5 Allergy status to narcotic agent; Z79.899 Other long term (current) drug therapy
CPT/HCPCS: 36415; 36600; 71045; 71275; 80048; 80053; 82805; 82962; 83605; 83735; 83880; 84443; 84484; 85007; 85025; 85027; 85379; 85610; 85730; 87040; 87045; 87493; 87804; 87899; 93005; 93306; 94640; 94761; 96374; 96375; 97110; 97116; 97163; 97530; C9113; J1815; J2405; J3490

== ENCOUNTER → 2020-02-27 | Outpatient (CLI) | payer OTHER ==
[~2020-02-27] MED LIST changes: +CHOL20007 PO; +CYA100I PO; +FOLI1TAB6 PO; +FUR20T PO; +IPR002IS NEB; +LEVA1NEB5 IN; +LEVO88TA4 PO; +POTA10TA51 PO; +PRAV20TA3 PO; -SIMV40TA96; -SYNTHROID PO; +TEMA15CA91 PO; +VALS40TA2 PO
[2020-02-27 11:24] LABS: Basophils # (auto) 0.1 10 ^3/uL (0-0.2); Eosinophils # (auto) 0.1 10 ^3/uL (0-0.8); Eosinophils % (auto) 1.4 % (0.0-7.0); Lymphocytes # (auto) 1.7 10 ^3/uL (0.4-5.4); White Blood Cell 8.8 10^3/uL (4.4-10.8)
[2020-02-27 11:27] LABS: Basophils % (auto) 1.6 % (0.0-2.0); Hematocrit 38.7 % (36.0-46.0); Hemoglobin 12.6 g/dL (12.2-16.2); Lymphocytes % (auto) 19.3 % (10.0-50.0); Mean Corpuscular Hemoglobin 32.1 pg (28.0-32.0); Mean Corpuscular Hgb Conc. 32.4 g/dL (32.0-36.0); Mean Corpuscular Volume 98.9 fL (80.0-100.0); Monocytes # (auto) 0.6 10 ^3/uL (0-1.3); Monocytes % (auto) 6.3 % (0.0-12.0); Neutrophils # (auto) 6.3 10 ^3/uL (1.6-8.6); Neutrophils % (auto) 71.4 % (37.0-80.0); Nucleated Red Blood Cells % 0.1 %; Platelet Count (auto) 622 10^3/uL (140-450); Red Blood Cells 3.91 10^6/uL (4.0-5.20); Red Cell Distribution Width 15.3 % (11.8-14.3)
[2020-02-27 11:29] LABS: Urine Bacteria NONE SEEN /hpf (None Seen); Urine Blood Negative /uL (Negative); Urine Mucus FEW (None Seen); Urine Specific Gravity 1.012 (1.001-1.035); Urine WBC 1 /hpf (0 - 5)
== END | disposition home or self-care (01) ==
LOC: LAB 11:00
PROVIDERS: ATTEND Family Medicine
DX: I11.0 Hypertensive heart disease with heart failure (principal); I50.40 Unspecified combined systolic (congestive) and diastolic (congestive) heart failure; J44.1 Chronic obstructive pulmonary disease with (acute) exacerbation; E03.9 Hypothyroidism, unspecified; S46.092S Other injury of muscle(s) and tendon(s) of the rotator cuff of left shoulder, sequela; X58.XXXS Exposure to other specified factors, sequela
CPT/HCPCS: 36415; 81001; 84443; 85025

== ENCOUNTER → 2020-05-28 | Outpatient (CLI) | payer OTHER ==
[~2020-05-28] MED LIST changes: +ALBUTEROL SULF 2.5 MG/0.5ML(0.5%) NEB SOLN ONE
== END | disposition home or self-care (01) ==
LOC: RT 08:33
PROVIDERS: ATTEND Internal Medicine Pulmonary Disease
DX: J44.9 Chronic obstructive pulmonary disease, unspecified (principal)
CPT/HCPCS: 94060; 94727; 94729

== ENCOUNTER → 2020-09-16 | Outpatient (CLI) | payer OTHER ==
[~2020-09-16] MED LIST changes: -ALBUTEROL SULF 2.5 MG/0.5ML(0.5%) NEB SOLN ONE; +TEMA15CA2 PO; -TEMA15CA91 PO
== END | disposition home or self-care (01) ==
LOC: LAB 11:35
PROVIDERS: ATTEND Family Medicine
DX: C44.90 Unspecified malignant neoplasm of skin, unspecified (principal)

== ENCOUNTER → 2020-10-13 | Outpatient (CLI) | payer OTHER ==
[2020-10-13 16:28] LABS: Eosinophils # (auto) 0.4 10 ^3/uL (0-0.8); Monocytes # (auto) 0.8 10 ^3/uL (0-1.3); Monocytes % (auto) 8.1 % (0.0-12.0)
[2020-10-13 16:30] LABS: Basophils # (auto) 0 10 ^3/uL (0-0.2); Basophils % (auto) 0.5 % (0.0-2.0); Eosinophils % (auto) 4.2 % (0.0-7.0); Hematocrit 32.3 % (36.0-46.0); Lymphocytes # (auto) 1.9 10 ^3/uL (0.4-5.4); Lymphocytes % (auto) 20.5 % (10.0-50.0); Mean Corpuscular Hemoglobin 33.3 pg (28.0-32.0); Mean Corpuscular Hgb Conc. 34.2 g/dL (32.0-36.0); Mean Corpuscular Volume 97.4 fL (80.0-100.0); Neutrophils # (auto) 6.2 10 ^3/uL (1.6-8.6); Neutrophils % (auto) 66.7 % (37.0-80.0); Nucleated Red Blood Cells % 0.1 %; Platelet Count (auto) 582 10^3/uL (140-450); Red Blood Cells 3.31 10^6/uL (4.0-5.20); Red Cell Distribution Width 14.8 % (11.8-14.3); White Blood Cell 9.4 10^3/uL (4.4-10.8)
[2020-10-13 17:05] LABS: Albumin 3.4 g/dL (3.4-5.0); Calcium 8.8 mg/dL (8.5-10.1); Potassium 4.9 mmol/L (3.5-5.1)
[2020-10-13 17:09] LABS: BUN/Creatinine Ratio 21.3; Bilirubin, Total 0.3 mg/dL (0.2-1.0); Total Protein 7.2 g/dL (6.4-8.2)
== END | disposition home or self-care (01) ==
LOC: LAB 16:12
PROVIDERS: ATTEND Internal Medicine
DX: C49.9 Malignant neoplasm of connective and soft tissue, unspecified (principal); Z91.012 Allergy to eggs
CPT/HCPCS: 36415; 80053; 83615; 85025

== ENCOUNTER → 2021-02-28 | Outpatient (CLI) | payer OTHER ==
[2021-02-28 11:28] LABS: Basophils # (auto) 0.1 10 ^3/uL (0-0.2); Lymphocytes # (auto) 1.8 10 ^3/uL (0.4-5.4); Monocytes # (auto) 0.5 10 ^3/uL (0-1.3)
[2021-02-28 11:31] LABS: Eosinophils # (auto) 0.1 10 ^3/uL (0-0.8); Eosinophils % (auto) 1.6 % (0.0-7.0); Hematocrit 35.9 % (36.0-46.0); Lymphocytes % (auto) 21.5 % (10.0-50.0); Mean Corpuscular Hemoglobin 32.7 pg (28.0-32.0); Mean Corpuscular Hgb Conc. 33.3 g/dL (32.0-36.0); Mean Corpuscular Volume 98.1 fL (80.0-100.0); Monocytes % (auto) 6.7 % (0.0-12.0); Neutrophils # (auto) 5.7 10 ^3/uL (1.6-8.6); Neutrophils % (auto) 69.2 % (37.0-80.0); Nucleated Red Blood Cells % 0.1 %; Red Blood Cells 3.66 10^6/uL (4.0-5.20); Red Cell Distribution Width 15.9 % (11.8-14.3); White Blood Cell 8.2 10^3/uL (4.4-10.8)
[2021-02-28 12:37] LABS: Potassium 4.3 mmol/L (3.5-5.1)
[2021-02-28 12:44] LABS: Albumin 3.4 g/dL (3.4-5.0); BUN/Creatinine Ratio 14.2; Bilirubin, Total 0.6 mg/dL (0.2-1.0); Calcium 8.8 mg/dL (8.5-10.1); Total Protein 6.8 g/dL (6.4-8.2)
== END | disposition home or self-care (01) ==
LOC: LAB 10:48
PROVIDERS: ATTEND Internal Medicine
DX: C49.9 Malignant neoplasm of connective and soft tissue, unspecified (principal)
CPT/HCPCS: 36415; 80053; 83615; 85025

== ENCOUNTER → 2021-07-13 | Outpatient (CLI) | payer OTHER ==
[2021-07-13 12:11] LABS: Hemoglobin 11.2 g/dL (12.2-16.2)
[2021-07-13 12:12] LABS: Hematocrit 34.2 % (36.0-46.0); Mean Corpuscular Hemoglobin 33.4 pg (28.0-32.0); Mean Corpuscular Hgb Conc. 32.7 g/dL (32.0-36.0); Mean Corpuscular Volume 102.2 fL (80.0-100.0); Red Blood Cells 3.35 10^6/uL (4.0-5.20); Red Cell Distribution Width 15.7 % (11.8-14.3); White Blood Cell 15.7 10^3/uL (4.4-10.8)
[2021-07-13 12:18] LABS: Basophils % (manual) 0 (0.0-2.0); Blast Cells 0; Eosinophils % (manual) 0 (0-7); Metamyelocytes % 0; Myelocytes % 0; Promyelocytes % 0; Reactive Lymphocytes 0
[2021-07-13 12:40] LABS: Albumin 3.6 g/dL (3.4-5.0); Calcium 8.8 mg/dL (8.5-10.1); Potassium 4.5 mmol/L (3.5-5.1)
[2021-07-13 12:44] LABS: BUN/Creatinine Ratio 21.2; Bilirubin, Total 0.6 mg/dL (0.2-1.0); Total Protein 6.4 g/dL (6.4-8.2)
[2021-07-13 13:43] LABS: Free T4 (Free Thyroxine) 1.17 ng/dL (0.89-1.76)
[2021-07-13 14:55] LABS: Band Neutrophils % (manual) 13; Lymphocytes % (manual) 7 (10.0-50.0); Monocytes % (manual) 8 (0-12)
== END | disposition home or self-care (01) ==
LOC: LAB 11:48
PROVIDERS: ATTEND Nurse Practitioner Family
DX: I10 Essential (primary) hypertension (principal); E03.9 Hypothyroidism, unspecified; J44.9 Chronic obstructive pulmonary disease, unspecified
CPT/HCPCS: 36415; 80053; 82607; 84439; 84443; 85007; 85027